=== PATIENT | female | born 1960 | race Caucasian/White ===

== ENCOUNTER → 2017-05-02 | Outpatient (CLI) | payer BC, OTHER ==
[~2017-05-02] VITALS: Ht 165.1 cm; Wt 107.5 kg
[~2017-05-02] MED LIST: CRESTOR10 MG PO; CRESTOR40 MG PO; TOPROL XL50 MG PO; VICTOZA 2-0.6 MG/0.1 SC; ZESTRIL5 MG PO; ZYLOPRIM300 MG PO
[2017-05-02 13:12] LABS: POINT-OF-CARE METER ID UU13113694
[2017-05-02 13:48] LABS: ANION GAP 11 MEQ/L (2-14); CHLORIDE 106 MEQ/L (99-109); GFR ESTIMATE (CALCULATED) > 59 mL/min/; GLUCOSE 114 mg/dL (70-99); SAMPLE HEMOLYSIS CHECK 0; SAMPLE ICTERIC CHECK 0; SAMPLE LIPEMIA CHECK 0; SODIUM 144 MEQ/L (136-147); UREA NITROGEN (BUN) 6 mg/dL (9-23)
[2017-05-02 14:32] LABS: POINT-OF-CARE METER ID UU13113819
== END | disposition home or self-care (01) ==
LOC: AMB 12:29
PROVIDERS: Anesthesiology; Internal Medicine
DX: Z12.11 Encounter for screening for malignant neoplasm of colon (principal); K57.30 Diverticulosis of large intestine without perforation or abscess without bleeding; K62.1 Rectal polyp; K29.80 Duodenitis without bleeding; K29.70 Gastritis, unspecified, without bleeding; K31.9 Disease of stomach and duodenum, unspecified; R07.89 Other chest pain; R13.10 Dysphagia, unspecified; Z79.82 Long term (current) use of aspirin; Z68.39 Body mass index [BMI] 39.0-39.9, adult; Z88.1 Allergy status to other antibiotic agents
CPT/HCPCS: 80048; 82948; 88305; 88342 TC; 93005; J2250; J3010